=== PATIENT | male | born 1975 | race African-American/Black ===

== ENCOUNTER 2021-06-02 16:08 | Emergency (ER) | payer SELFPAY ==
[~2021-06-02] VITALS: Ht 188 cm; Wt 115.7 kg
--- NOTE | 2021-06-02 16:15 | NUR ---
TO ER BED 3, C/O LACERATION ON LEFT HAND, PAIN ON RT HAND, FOREARM, AND CHEST, A&OX4, BREATHING EVEN AND UNLABORED.
--- NOTE | 2021-06-02 16:49 | NUR ---
TAKEN TO CT
[2021-06-02] MEDS ORDERED: BACI/NEOM/POLY B OINT PKT 1 UDPKT PACKET TP ONE (17:00)
[2021-06-02] MEDS ORDERED: FUROSEMIDE 40 MG/4 ML VIAL IV ONE (17:30)
[2021-06-02] MEDS ORDERED: HYDR-3980 PO (17:31)
[2021-06-02 17:44] VITALS: BP 128/88
== END 2021-06-02 17:44 | disposition home or self-care (01) ==
LOC: ER 16:15
DX: S61.412A Laceration without foreign body of left hand, initial encounter (principal); S13.4XXA Sprain of ligaments of cervical spine, initial encounter; S20.219A Contusion of unspecified front wall of thorax, initial encounter; S00.03XA Contusion of scalp, initial encounter; V49.49XA Driver injured in collision with other motor vehicles in traffic accident, initial encounter; Y93.89 Activity, other specified; Y92.413 State road as the place of occurrence of the external cause; Y99.8 Other external cause status
CPT/HCPCS: 70450-TC; 71045-TC; 72125-TC